=== PATIENT | female | born 1965 | race African-American/Black ===

== ENCOUNTER 2018-05-25 19:51 | Emergency (ER) | payer BC, OTHER ==
[~2018-05-25] VITALS: Ht 162.6 cm; Wt 90.7 kg
[2018-05-25 20:00] VITALS: BP 170/65
[2018-05-25] MEDS ORDERED: PREDNISONE 20 M20 MG PO (22:39)
[2018-05-25] MEDS ORDERED: FLEXERIL PO (22:39)
== END 2018-05-25 22:50 | disposition home or self-care (01) ==
LOC: ER 19:51
DX: R20.2 Paresthesia of skin (principal); R53.1 Weakness; F17.210 Nicotine dependence, cigarettes, uncomplicated; Z88.1 Allergy status to other antibiotic agents